=== PATIENT | male | born 1970 | race Caucasian/White ===

== ENCOUNTER → 2017-03-04 | Outpatient (CLI) | payer OTHER ==
[~2017-03-04] MED LIST: GADOBUTROL 7.5 MMOL/7.5 ML VIAL INT ART ONE; IOHEXOL 300 MG/ML 10ML VIAL. INT ART ONE; LIDOCAINE 1% Multi-Dose 20 ML VIAL. ID ONE
--- NOTE | 2017-03-04 15:02 | KCIC ---
EXAM: Fluoroscopic guided right shoulder injection for MR arthrography. HISTORY: Pain. TECHNIQUE: The risks of the procedure were discussed with the patient and written and verbal consent was obtained. A time out was performed. Fluoroscopic imaging of the right shoulder was performed and a site overlying the joint space was selected for needle entry. The skin overlying this region was sterilely prepped, draped and infiltrated with 1% lidocaine. A spinal needle was then advanced into the joint space with fluoroscopic guidance. A solution containing 1 cc gadavist intravenous contrast in 5 cc Omnipaque 300, 5 cc lidocaine and 10 cc saline was injected into the joint space. The needle was removed and a sterile bandage was placed at the needle entry site. The patient tolerated the procedure without difficulty and was transferred to the MR suite for the post injection MR portion of the exam. The total fluoroscopy time was 18 seconds and a single fluoroscopic image was obtained. IMPRESSION: Successful fluoroscopic guided right shoulder injection for MR arthrography. Please refer to the separate MR arthrogram report for further evaluation details. Electronically signed by: Nikia Sanchez MD (03/04/2017 2:58 PM)
--- NOTE | 2017-03-04 16:07 | KCIC ---
MRI right shoulder arthrogram Clinical indications: Right shoulder pain and burning. Limited range of motion. No new injury. TECHNIQUE: After intra-articular injection of gadolinium, post arthrogram MRI sequences of the right shoulder were performed in all 3 planes. Additional ABER sequence of the right shoulder was performed. The intra-articular injection of gadolinium was performed by another radiologist and is dictated under separate report. COMPARISON: No previous MRI available. FINDINGS: Mild tendinosis of the supraspinatus tendon is seen. No partial articular surface tear or complete tear of the rotator cuff is seen. The tendon of the long head of the biceps is intact. No muscle atrophy is seen. There is mild primary degenerative osteoarthritis and spurring of the AC joint. The inferior margin of the acromial process is convex downward. These findings may impinge the acromial humeral space. There is mild chronic cystic change within the posterior lateral aspect of the humeral head secondary to chronic impingement. No bone contusion or fracture or marrow infiltrative process is seen. The glenohumeral joint is unremarkable. There is a small tear of the posterior superior aspect of the glenoid labrum. This portion of the labrum is irregular and fibrillated. There is a tiny paralabral ganglion cyst seen just medial to the superior posterior aspect of the glenoid labrum seen best on image 11 and series 3 and image 12 and series 6 and 7. No spinoglenoid notch ganglion cyst is seen. No subdeltoid or subacromial bursitis is seen. IMPRESSION: Mild tendinosis of the supraspinatus tendon. No rotator cuff tear is evident. Impingement of the acromial humeral space as discussed above. No subdeltoid or subacromial bursitis is seen. Small tear of the posterior superior aspect of the glenoid labrum with a tiny paralabral ganglion cyst. The cyst itself measures only 4 mm in size. There is paramagnetic susceptibility artifact involving the lateral subcutaneous soft tissues and lateral deltoid muscle. This may be secondary to previous shoulder surgery or a foreign body. Electronically signed by: Elias Monroy MD (03/04/2017 4:04 PM)
== END | disposition home or self-care (01) ==
LOC: KCIC 13:41
PROVIDERS: ATTEND Family Medicine
DX: M67.411 Ganglion, right shoulder (principal); Z87.891 Personal history of nicotine dependence
CPT/HCPCS: 73040; 73222; Q9967; A9585

== ENCOUNTER → 2018-09-20 | Outpatient (CLI) | payer OTHER ==
--- NOTE | 2018-09-21 10:16 | KCIC ---
MRI Lumbar Spine without contrast History: Acute lumbar pain Technique: Multiplanar, multi sequential noncontrast MR imaging was performed of the lumbar spine. Comparison: None Findings: There is mild motion. Lumbar vertebral body stature is overall preserved other than small Schmorl's nodes. There is negligible anterior spondylolisthesis L2-3. Conus terminates at L1. There is appearance of subtle increased STIR signal of the distal cord at the T12 level. There is [id number] degenerative disc disease at L2-L3, to a lesser degree at L4-5. There is trace edema of the anterior superior corner of L1 likely reactive/degenerative in etiology. T12-L1: Spinal canal and neural foramina are adequate. L1-L2: Neural foramina and spinal canal are adequate. L2-L3: There is minimal disc osteophyte complex and bulge. Spinal canal and neural foramina are adequate. L3-L4: There is negligible disc osteophyte complex. Neural foramina and spinal canal are adequate. Disc osteophyte complex is near the extraforaminal left L3 nerve root without displacement. L4-L5: There is negligible disc osteophyte complex, superimposed negligible bulge more eccentric to the right lateral recess. There is no significant neural impingement. Spinal canal is overall adequate. There is minimal neural foramina compromise bilaterally primarily from disc osteophyte complex. L5-S1: Spinal canal is adequate. There is negligible disc osteophyte complex in the inferior neural foramina bilaterally, neural foramina overall adequate. Impression: 1. There is no lumbar spinal stenosis. There is minimal neural foramina compromise bilaterally at L4-5. Disc osteophyte complex is near the extraforaminal left L3 nerve root at L3-4 without displacement. There is multilevel minimal spondylosis. There is degenerative disc disease greatest at L2-3 and L4-5. Electronically signed by: Jaleel Hernandez MD (09/21/2018 10:12 AM) [email or web address]
== END | disposition home or self-care (01) ==
LOC: KCIC MRI 17:11
PROVIDERS: ATTEND Family Medicine Sports Medicine
DX: M51.36 Other intervertebral disc degeneration, lumbar region (principal); M47.896 Other spondylosis, lumbar region; M51.46 Schmorl's nodes, lumbar region; M25.78 Osteophyte, vertebrae
CPT/HCPCS: 72148

== ENCOUNTER → 2019-06-13 | Outpatient (CLI) | payer OTHER ==
[~2019-06-13] MED LIST changes: -GADOBUTROL 7.5 MMOL/7.5 ML VIAL INT ART ONE; +HYDR-2761 PO; -IOHEXOL 300 MG/ML 10ML VIAL. INT ART ONE; -LIDOCAINE 1% Multi-Dose 20 ML VIAL. ID ONE; +NAPR-514 PO
--- NOTE | 2019-06-14 00:03 | PAIN ---
DATE OF SERVICE: 06/13/2019 INITIAL CONSULTATION FOR PAIN CLINIC CHIEF COMPLAINT: Neck and bilateral upper extremity pain. HISTORY OF PRESENT ILLNESS: The patient is a 48-year-old male who presents with history of pain in the neck and base of the shoulders bilaterally for about the past 8 months or so, not a result of any specific injury or action he is aware of, it has been increasing with activity, rotational motion of cervical spine, difficulty sleeping at night, wakes him from sleep, many times during the night. It does not affect his bowel or bladder control or his ability to walk, significantly tender. He also has some low back pain. He has had some radiofrequency ablation done in the past with good results, but his main complaint is neck and upper extremity pain. The patient reports right essentially equal to left. He has had chiropractic treatment as well as doing exercises, both of which helped. He is still doing some stretching as well as takes hydrocodone as well as baclofen. Hydrocodone does help somewhat and naproxen, which helped some of the back pain ____. The patient rates his disability rating from 0-10, 10 being the worst, is a 5 with family, home responsibilities, recreation, social activity, and sexual behavior, 7 with occupation, 9 with self-care activities and 9 with life support activities. The patient reports pain is becoming more constant, sharp, tingling with numbness in the upper extremities, no specific weakness of the arms, but a burning, aching pain, has significant fatigability in the upper extremities bilaterally as well. The patient did have MRI scan; however, that was at outside facility and is still pending at time of this dictation. PAST MEDICAL HISTORY: Significant for diabetes type 2, history of cigarette smoking 3/4 pack for the past 20 years, low back pain, arthritis. PREVIOUS SURGERY: Include fractured index finger and right shoulder surgery in 2011. CURRENT MEDICATIONS: Include naproxen and hydrocodone. ALLERGIES: The patient has no known drug allergies. FAMILY HISTORY: Significant for diabetes. SOCIAL HISTORY: The patient drinks alcohol occasionally socially smoked about 3/4 of pack a day for 20 years. Does not use any illegal, illicit or recreational drugs. He is , lives with his spouse, lives locally in [place], [place] and is active family. REVIEW OF SYSTEMS: The patient's review of systems is positive for those items mentioned in history of present illness. All systems reviewed and otherwise negative. It is complete, full and well documented on the patient's chart. PHYSICAL EXAMINATION: VITAL SIGNS: The patient's blood pressure is 136/92, pulse 77, respirations 18, temperature 98.2 degrees Fahrenheit, height is 5 feet 9 inches, weight is 214 pounds. GENERAL: The patient is awake, alert, oriented, appropriate, very pleasant demeanor. HEENT: Shows normocephalic, atraumatic. Extraocular movements are intact and symmetrical. Oral cavity: Mucous membranes moist and pink. Dentition is intact. NECK: Shows anterior throat supple without palpable lymphadenopathy noted. Swallow reflex symmetrical. CHEST: Shows normal on inspection. Breath sounds clear to auscultation bilaterally. HEART: Shows S1, S2 clear. No murmurs auscultated. ABDOMEN: Soft, nontender, nondistended. No palpable organomegaly is noted. No rebound or guarding demonstrated. BACK: Shows spine grossly in the midline. Normal appearing thoracic kyphosis, cervical lordotic curvature and lumbar lordotic curvature. Cervical paraspinous muscle shows symmetrical on inspection, with palpation shows some moderate tenderness diffusely bilaterally in the middle and inferior aspect of the cervical paraspinous musculature. The patient's neck shows good rotational motion both laterally greater than 45 degrees closer to 90 degrees laterally as well as full forward flexion and extension without significant increase in pain. EXTREMITIES: The patient's upper extremities show deep tendon reflexes at 2+ in the biceps and triceps tendons. 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 Peripheral pulses are 2+ radial distribution. No peripheral edema is noted. Shoulder shrug is strong and intact without loss of strength on resistance as is abduction of shoulder at 90 degrees without loss of strength on resistance as well bilaterally. SKIN: Warm and dry, good turgor. No edema. No sores, rashes or bruising throughout. IMPRESSION: 1. This is a 48-year-old male with approximate 8-month history of increasing pain in base of the neck radiating to the bilateral upper extremity in a radicular fashion. 2. MRI scan, as noted, pending. 3. Type 2 diabetes. 4. Cigarette smoking. 5. Arthritis. PLAN: Options were discussed with the patient including conservative medical management, physical therapy, and interventional techniques and he would like to pursue interventional techniques as he is already doing some chiropractic treatment and exercises on his own. We discussed a cervical epidural steroid injection using description as well as anatomical models to describe the procedure. The patient will wait for preauthorization with insurance provider and would like to proceed. We will have him return in approximately 2 weeks. The patient was given Medrol Dosepak in the meantime with instructions, side effects to be aware of with the medication. We will follow up as scheduled plan on cervical epidural steroid injection on return. RAUL STONE MD DR: BLANQUITA/leeroy JOB#: [id number] / [id number]
== END | disposition home or self-care (01) ==
LOC: PNCL 09:42
PROVIDERS: ATTEND Anesthesiology
DX: M54.2 Cervicalgia (principal); M79.641 Pain in right hand; M79.642 Pain in left hand; R20.0 Anesthesia of skin; R20.2 Paresthesia of skin; E11.9 Type 2 diabetes mellitus without complications; M19.90 Unspecified osteoarthritis, unspecified site; F17.210 Nicotine dependence, cigarettes, uncomplicated
CPT/HCPCS: G0463

== ENCOUNTER → 2019-06-27 | Outpatient (CLI) | payer OTHER ==
[~2019-06-27] MED LIST changes: +IOHEXOL 180 MG/ML 10 ML VIAL. ONE; +methylPREDNISolone ACETATE 40 MG/ML VIAL. ONE; +methylPREDNISolone ACETATE 80 MG/ML VIAL. ONE
--- NOTE | 2019-06-27 11:48 | PAIN ---
DATE OF SERVICE: 06/27/2019 PROGRESS NOTE FOR PAIN CLINIC DIAGNOSIS: Cervical radiculopathy with cervical degenerative disk disease. HISTORY OF PRESENT ILLNESS: The patient is a 48-year-old male who returns for followup status post evaluation for cervical epidural steroid injection. He has obtained this now and would like to proceed. The patient still has some pain in the base of the neck and shoulders bilaterally, right essentially equal to the left at this time, worse with repetitive motions, reaching over his head with his arms, weightbearing, driving. The patient reports it awakens him from sleep occasionally once about every 6 hours or so. The patient reports his pain is a 7 on a scale of 10 at its worst over the past week, on average is 7, also 3 at its least and is a 7 today. The patient reports it is aching, dull, tight, tingling, burning, sometimes severe in the base of neck and shoulders as well as into the upper extremities. The patient reports no new motor or sensory deficits or other complaints. PHYSICAL EXAMINATION: VITAL SIGNS: The patient's blood pressure 125/97, pulse 79, respirations 18, temperature 98.5 degrees Fahrenheit, height is 5 feet 9 inches, weight is 213 pounds. GENERAL: The patient is awake, alert, oriented, appropriate, very pleasant demeanor. HEENT: Shows normocephalic, atraumatic. Extraocular movements are intact and symmetrical. Oral cavity: Mucous membranes moist and pink. Dentition is intact. NECK: Shows anterior throat supple without palpable lymphadenopathy noted. Swallow reflex symmetrical. CHEST: Shows normal on inspection. Breath sounds are clear to auscultation bilaterally. HEART: Shows S1, S2 clear. No murmurs auscultated. ABDOMEN: Soft, nontender, nondistended. No palpable organomegaly is noted. No rebound or guarding demonstrated. BACK: Shows spine grossly in the midline. Cervical lordotic curvature slightly flattened. Cervical paraspinous muscle shows symmetrical on inspection, on palpation shows some moderate tenderness diffusely bilaterally, but only diffusely without significant radiation. The patient has good rotational motion of cervical spine, both laterally greater than 45 degrees closer to 90 degrees as well as full extension, full forward flexion without significant increase in pain. EXTREMITIES: Upper extremities show deep tendon reflexes at 2+ in the biceps and triceps tendons. 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 Peripheral pulses are 2+ radial distribution. No peripheral edema is noted bilaterally. Options were discussed with the patient. The patient's old chart was reviewed as his current medication regimen updated. Current review of systems updated today as well. We will proceed with cervical epidural steroid injection today with fluoroscopic guidance. Risks were again discussed including, but not limited to bleeding, infection, possibility of epidural hematoma and subsequent neurological compromise, dural puncture, headaches, spinal cord and/or nerve damage, side effects of steroid medication and poor results regarding pain control. The patient understands and wished to proceed. The patient will return to clinic in approximately 2 weeks for followup. She was counseled on return appointment, activity level and side effects to be aware of. DIAGNOSES: Cervical radiculopathy with cervical degenerative disk disease. PROCEDURE: Cervical epidural steroid injection, translaminar approach, C6-C7 level, using C-arm fluoroscopic guidance under sterile prep and drape using local anesthetic. MEDICATION INJECTED: A total of 120 mg Depo-Medrol plus 5 mL of preservative-free normal saline and 2 mL of contrast. CONDITION AT DISCHARGE: Stable. The patient tolerated the procedure well, had no complications. RAUL STONE MD DR: BLANQUITA/leeroy JOB#: [id number] / [id number]
== END ==
LOC: PNCL 10:04
PROVIDERS: ATTEND Anesthesiology
DX: M50.123 Cervical disc disorder at C6-C7 level with radiculopathy (principal)
CPT/HCPCS: 62321; J1030; J1040; Q9965

== ENCOUNTER → 2019-11-18 | Outpatient (CLI) | payer OTHER ==
[~2019-11-18] MED LIST changes: -IOHEXOL 180 MG/ML 10 ML VIAL. ONE; -methylPREDNISolone ACETATE 40 MG/ML VIAL. ONE; -methylPREDNISolone ACETATE 80 MG/ML VIAL. ONE
--- NOTE | 2019-11-18 17:07 | KCIC ---
MRI Lumbar Spine without contrast History: Chronic lumbar pain, pain and numbness into the left flank Technique: Multiplanar, multi sequential noncontrast MR imaging was performed of the lumbar spine. Comparison: September 20, 2018 Findings: Other than small Schmorl's nodes, lumbar vertebral body stature is maintained. AP alignment is unchanged. There is again small focus of nonexpansile, increased T2 and STIR signal of the distal cord at T12. There is again [id number] degenerative disc disease at L2-3, to lesser degree at L4-5, mild disc desiccation L3-4 and L1-2. T11-12: Neural foramina and spinal canal are adequate. T12-L1: Neural foramina and spinal canal are adequate. L1-L2: Neural foramina and spinal canal are adequate. There is negligible disc osteophyte complex. L2-L3: There is a minimal disc osteophyte complex and bulge. Spinal canal and neural foramina are adequate. L3-L4: There is again negligible disc osteophyte complex. Spinal canal and neural foramina are overall adequate. There is minimal buckling of the ligamentum flavum and facet degenerative change. Disc osteophyte complex is again near the extraforaminal left L3 nerve root without significant displacement. L4-L5: There is again negligible disc osteophyte complex and bulge. Spinal canal is overall adequate. There is again mild inferior neural foramina compromise bilaterally greater on the right by disc osteophyte complex, near the undersurfaces of the exiting L4 nerve roots greater on the right without significant displacement. L5-S1: Spinal canal is adequate. There is again negligible disc osteophyte complex in the inferior neural foramina, very mild narrowing of the more distal right neural foramen, left neural foramen not significantly narrowed. Impression: 1. Findings are similar comparing with the September 2018 exam. There is again degenerative disc disease greatest at L2-3. There is multilevel mild spondylosis. There is no new significant lumbar spinal stenosis. There is mild neural foramina compromise as stated. There is again focus of nonexpansile, increased T2 signal of the distal thoracic cord with could be secondary to sequela of demyelination or myelomalacia. Electronically signed by: Jaleel Hernandez MD (11/18/2019 5:04 PM) [email or web address]
== END | disposition home or self-care (01) ==
LOC: KCIC MRI 15:53
PROVIDERS: ATTEND Nurse Practitioner Family
DX: M51.36 Other intervertebral disc degeneration, lumbar region (principal); M51.26 Other intervertebral disc displacement, lumbar region; M48.07 Spinal stenosis, lumbosacral region; M25.78 Osteophyte, vertebrae
CPT/HCPCS: 72148

== ENCOUNTER → 2020-05-21 | Outpatient (CLI) | payer OTHER ==
[~2020-05-21] MED LIST changes: +METF500T16 PO
--- NOTE | 2020-05-21 11:35 | PDOC ---
Progress Note - Pain Clinic Date of Service: DOS: DATE: 05/21/20 TIME: 11:28 Diagnosis: Dx: Cervical radiculopathy with cervical degenerative disc disease History or Present Illness: HPI: 49-year-old male returns follow-up status post cervical epidural steroid injection June 27, 2019. Patient ports about 75% improvement for about 4 months he was increasing activity greater ease and comfort feeling much better during work activities household activities greater ease and comfort and daily activities traveling greater ease and comfort as well. Patient reports since that time the pain level has decreased in intensity but the pain is increasing i n the base the neck and especially in the left greater than right upper extremity. Patient ports about the past 5 to 6 months pain is been more noticeable and now is getting much more noticeable raise beyond the emergency department to get a Toradol shot about once every week a week and a half. Patient reports pain is a 9 on a scale of 10 is worse over the past week 8 on average 5 this least is a 5 today. Patient describes pain as aching sharp shooting tight tingling radiating constant and severe at times as well mostly in the base the neck and left greater than right shoulder and left upper extremity was been dropping some items with some pain rating into the bicep as well as into the forearm and occasionally some tingling in the left hand. She has been chiropractic help which is been only minimally decreasing the pain. Patient reports no new motor or sensory deficits no new bowel or bladder incontinence complaints. Physical Exam: VS: Blood pressure is 134/104 pulse 81 respirations 18 temperature 98.3 F height 5 feet 9 inches weight is 224 pounds PE: PHYSICAL EXAMINATION: GENERAL: The patient is awake, alert, oriented, appropriate, very pleasant demeanor HEENT: Shows normocephalic, atraumatic. Extraocular movements are intact and symmetrical. Oral cavity: Mucous membranes moist and pink. Dentition is intact. NECK: Shows anterior throat supple without palpable lymphadenopathy noted. Swallow reflex symmetrical. CHEST: Shows normal on inspection. Breath sounds are clear bilaterally, no rales rhonchi or wheezes. HEART: Shows S1, S2 clear. No murmurs auscultated. ABDOMEN: Soft, nontender, nondistended. No palpable organomegaly is noted. No rebound or guarding demonstrated. BACK: Shows spine grossly in the midline. Normal-appearing cervical lordotic curvature, cervical range of motion is intact with good right and left lateral rotation with some moderate tenderness with far left lateral Tatian past 45 degrees before rotation right past 45 closer to 90 degrees. Full extension full for flexion deformity mild tenderness with extension only. Paraspinous muscle shows moderately tender more on the left than the right with inferior aspect of the cervical paraspinous muscles into the superior medial trapezius on the left again without specific trigger points. There is slightly increased thoracic kyphosis, some minor flattening of the lumbar lordotic curvature. Lumbar paraspinous muscles show symmetrical on inspection, on palpation shows some moderate tenderness diffusely throughout the upper, middle and lower distribution of the paraspinous muscles without specific trigger points, without radiation of pain. The patient has good rotational motion of the lumbar spine, both laterally as well as extension and flexion without significant difficulty. No tenderness over the spinous processes, sacrum or sacroiliac regions. EXTREMITIES: upper extremities show deep tendon reflexes 2+ in the biceps and tricep tendons. Motor exam is 5 on a scale of 5 with right biceps and tricep flexion and 5/5 on the left. Peripheral pulses are 2+ radial. No peripheral edema is noted bilaterally. upper extremities are warm and dry to touch, equal in color and appearance. SKIN: Shows warm and dry, good turgor. No edema. No sores, rashes or bruising throughout. Procedure: Procedure: None Medication Injected: Med Injected: None Condition at Discharge: Condition at Discharge: Options discussed with the patient. Patient will chart was reviewed his current medication regimen updated current review of systems updated today as well. We will preauthorize patient for a cervical epidural steroid injection is done very well with these in the past and has been almost 1 year since he had an injection. Patient continues to have significant clinical radiculopathy on the left at the C6-7 level and dermatome. Patient will continue with stretching and strengthening exercises as he is currently doing. Patient also given a prescription for Medrol Dosepak with instructions and side effects to be aware of. Patient will return to clinic in approximately 1 week after preauthorization with his insurance provider will plan on cervical epidural steroid injection translaminar approach at that time. RAUL STONE MD May 21, 2020 11:35
== END | disposition home or self-care (01) ==
LOC: PNCL 10:38
PROVIDERS: ATTEND Anesthesiology
DX: M50.123 Cervical disc disorder at C6-C7 level with radiculopathy (principal); Z79.899 Other long term (current) drug therapy
CPT/HCPCS: G0463

== ENCOUNTER → 2020-06-18 | Outpatient (CLI) | payer OTHER ==
[~2020-06-18] MED LIST changes: +IOHEXOL 180 MG/ML 10 ML VIAL. ONE; +methylPREDNISolone ACETATE 40 MG/ML VIAL. ONE; +methylPREDNISolone ACETATE 80 MG/ML VIAL. ONE
--- NOTE | 2020-06-18 11:35 | PDOC ---
Progress Note - Pain Clinic Date of Service: DOS: DATE: 06/18/20 TIME: 11:30 Diagnosis: Dx: Cervical radiculopathy with cervical degenerative disc disease History or Present Illness: HPI: 49-year-old male returns follow-up status post cervical epidural straight injection x1 most recently with office visit May 21, 2020 and preauthorization for cervical epidural steroid injection. Patient reports still significant pain base the neck and left shoulder left upper extremity as it was previously without significant change patient reports is an 8 on a scale of 10 is worse over the past week 5 on average for this least is a 5 today patient was aching and tight tingling burning stabbing in the base the neck and shoulder on the left side primarily into the anterior deltoid bicep and into the forearm with repetitive motions and reaching above his head with his left hand. Patient reports no new motor or sensory deficits no loss of strength but significant fatigability of the left upper extremity. Physical Exam: VS: Blood pressure is 145/107 pulse 81 respirations 20 temperature 98.1 F weight is 223 pounds PE: PHYSICAL EXAMINATION: GENERAL: The patient is awake, alert, oriented, appropriate, very pleasant demeanor HEENT: Shows normocephalic, atraumatic. Extraocular movements are intact and symmetrical. Oral cavity: Mucous membranes moist and pink. NECK: Shows anterior throat supple without palpable lymphadenopathy noted. Swallow reflex symmetrical. CHEST: Shows normal on inspection. Breath sounds are clear bilaterally. HEART: Shows S1, S2 clear. No murmurs auscultated. ABDOMEN: Soft, nontender, nondistended. No palpable organomegaly is noted. No rebound or guarding demonstrated. BACK: Shows spine grossly in the midline. Normal-appearing cervical lordotic curvature, neck shows full rotation motion cervical spine both laterally greater than 45 degrees closer to 90 degrees as well as full extension full forward flexion without significant difficulty. There is slightly increased thoracic kyphosis, some minor flattening of the lumbar lordotic curvature. Lumbar paraspinous muscles show symmetrical on inspection, on palpation shows some moderate tenderness diffusely throughout the upper, middle and lower distribution of the paraspinous muscles bilaterally and also into the lower thoracic paraspinous musculature, firm and tender, but without specific trigger points, without radiation of pain. The patient has good rotational motion of the lumbar spine, both laterally as well as extension and flexion without significant difficulty. No tenderness over the spinous processes, sacrum or sacroiliac regions. EXTREMITIES: upper extremities show deep tendon reflexes 2+ in the biceps and triceps tendons. Motor exam is 5 on a scale of 5 with right almond paste mixer, biceps and triceps flexion and 5/5 on the left. Peripheral pulses are 2+ radial. No peripheral edema is noted bilaterally. upper extremities are warm and dry to touch, equal in color and appearance. SKIN: Shows warm and dry, good turgor. No edema. No sores, rashes or bruising throughout. Procedure: Procedure: Options were discussed with the patient. Patient old chart was reviewed, his current medication regimen updated, and current review of systems updated today as well. We will proceed with a cervical epidural steroid injection with fluoroscopic guidance. Risks were discussed including but not limited to: Bleeding, infection, possibility of epidural hematoma and subsequent neurological compromise, dural puncture, headaches, spinal cord and/or nerve damage, side effects of steroid medication, and poor results regarding pain con trol. Patient understands wished to proceed. Patient will return to the clinic in approximate 2 weeks for follow-up. Patient was counseled as return appointment activity level and side effects to be aware of. Medication Injected: Med Injected: Procedure cervical epidural steroid injection at the C6-7 level, using local anesthetic under sterile prep and drape using C-arm fluoroscopic guidance under local anesthesia medications injected ; 120 mg Depo-Medrol + 5 mL normal saline and 2 mL contrast; condition at discharge is stable patient tolerated procedure well. and had no complications Condition at Discharge: Condition at Discharge: Condition at discharge is stable, patient tolerated procedure well had no complications. RAUL STONE MD Jun 18, 2020 11:35
== END | disposition home or self-care (01) ==
LOC: PNCL 10:51
PROVIDERS: ATTEND Anesthesiology
DX: M50.123 Cervical disc disorder at C6-C7 level with radiculopathy (principal); E11.9 Type 2 diabetes mellitus without complications; Z87.891 Personal history of nicotine dependence; Z79.899 Other long term (current) drug therapy; Z79.84 Long term (current) use of oral hypoglycemic drugs
CPT/HCPCS: 62321; J1030; J1040; Q9965

== ENCOUNTER → 2020-07-13 | Outpatient (CLI) | payer OTHER ==
--- NOTE | 2020-07-13 10:52 | PDOC ---
Progress Note - Pain Clinic Date of Service: DOS: DATE: 07/13/20 TIME: 10:49 Diagnosis: Dx: Cervical radiculopathy with cervical degenerative disc disease History or Present Illness: HPI: 49-year-old male returns follow-up status post cervical epidural steroid injection x1. Patient reports about 50% improvement after first injection still some pain in the left upper extremity as well as the mid upper back patient reports is a 7 on scale 10 is worst over the past week 3 on average 3 its least is a 3 today. Patient which is aching and sharp can be shooting and tight at times in the shoulder and radiating to the left upper extremity no loss of motor function better ability to use his arm repetitively with motor function after his last injection and is still helping the pain by about 50%. Patient ports he still does not sleep well at night but not because of his left arm. Patient reports no new changes no new deficits. Physical Exam: VS: Blood pressure is 140/98 pulse 93 respirations 18 temperature 98.6 F height is 5 foot 9 inches weight is 221 pounds PE: PHYSICAL EXAMINATION: GENERAL: The patient is awake, alert, oriented, appropriate, very pleasant demeanor HEENT: Shows normocephalic, atraumatic. Extraocular movements are intact and symmetrical. NECK: Shows anterior throat supple without palpable lymphadenopathy noted. Swallow reflex symmetrical. CHEST: Shows normal on inspection. Breath sounds are clear bilaterally no rales rhonchi or wheezes. HEART: Shows S1, S2 clear. No murmurs auscultated. ABDOMEN: Soft, nontender, nondistended, obese. No palpable organomegaly is noted. No rebound or guarding demonstrated. BACK: Shows spine grossly in the midline. Normal-appearing cervical lordotic curvature. There is slightly increased thoracic kyphosis, some minor flattening of the lumbar lordotic curvature. Lumbar paraspinous muscles show symmetrical on inspection, on palpation shows some moderate tenderness diffusely throughout the upper, middle and lower distribution of the paraspinous muscles bilaterally, without specific trigger points, without radiation of pain. The patient has good rotational motion of the lumbar spine, both laterally as well as extension and flexion without significant difficulty. No tenderness over the spinous processes, sacrum or sacroiliac regions. EXTREMITIES: Upper extremities show deep tendon reflexes 2+ in the biceps and triceps tendons. Motor exam is 5 on a scale of 5 with right planning intern strength, biceps and triceps flexion and 5/5 on the left. Peripheral pulses are 2+ posterior radial. No peripheral edema is noted bilaterally. Upper extremities are warm and dry to touch, equal in color and appearance. SKIN: Shows warm and dry, good turgor. No edema. No sores, rashes or bruising throughout. Procedure: Procedure: Options were discussed with the patient. Patient's old chart was reviewed his his current medication regimen updated current review of systems updated today as well. We will proceed with a second in a series cervical epidural steroid injection today with fluoroscopic guidance. Risks were discussed including but not limited to: Bleeding, infection, possibility of epidural hematoma and subsequent neurological compromise, dural puncture, headaches, spinal cord and/or nerve damage, side effects of steroid medication, and poor results regarding pain control. Patient understands wished to proceed. Patient will return to the clinic in possibly 2 weeks for follow-up was counseled as to return appointment activity level and side effects to be aware of. Medication Injected: Med Injected: Procedure cervical epidural steroid injection at the C6-7 level, using local anesthetic under sterile prep and drape using C-arm fluoroscopic guidance under local anesthesia medications injected ; 120 mg Depo-Medrol + 5 mL normal saline and 2 mL contrast; condition at discharge is stable patient tolerated procedure well. and had no complications Condition at Discharge: Condition at Discharge: Condition at discharge is stable patient tolerated the procedure well had no complications. RAUL STONE MD Jul 13, 2020 10:52
== END ==
LOC: PNCL 10:04
PROVIDERS: ATTEND Anesthesiology
DX: M50.123 Cervical disc disorder at C6-C7 level with radiculopathy (principal); E11.9 Type 2 diabetes mellitus without complications; Z79.899 Other long term (current) drug therapy; Z79.84 Long term (current) use of oral hypoglycemic drugs
CPT/HCPCS: 62321; J1030; J1040; Q9965

== ENCOUNTER → 2020-09-17 | Outpatient (CLI) | payer OTHER ==
--- NOTE | 2020-09-17 08:45 | PDOC ---
Progress Note - Pain Clinic Date of Service: DOS: DATE: 09/17/20 TIME: 08:41 Diagnosis: Dx: Cervical radiculopathy with cervical degenerative disc disease Lumbar radiculopathy with lumbar degenerative disc disease History or Present Illness: HPI: 49-year-old male returns follow-up status post cervical epidural steroid injection x2. Patient reports 50% improvement initially in the base the neck a nd left greater than right upper extremities still pain the base the neck causing headaches also pain in the shoulders bilaterally radiating to the left side greater than right patient reports is a 10 on scale 10 is worse over the past week 10 on average 7 its least is a 10 today. Patient was aching and tight tingling severe the base the neck and shoulders again with headaches pos teriorly. Patient reports initially did much better with increasing his activity to greater distance walking doing more work activities household activities and traveling with greater ease and comfort but pain is returning now to fairly significant extent. Patient scribes as tingling aching tight severe in the shoulders itself as well as the neck awakens her from sleep about once every 6 hours. Patient ports no new motor or sensory deficits. Physical Exam: VS: Blood pressure is 130 over pulse 81 respirations 18 temperature is 98.4 F height is 5 feet 9 inches weight is 227 pounds PE: PHYSICAL EXAMINATION: GENERAL: The patient is awake, alert, oriented, appropriate, very pleasant demeanor HEENT: Shows normocephalic, atraumatic. Extraocular movements are intact and symmetrical. Oral cavity: Mucous membranes moist and pink. NECK: Shows anterior throat supple without palpable lymphadenopathy noted. Swallow reflex symmetrical. CHEST: Shows normal on inspection. Breath sounds are clear bilaterally. HEART: Shows S1, S2 clear. No murmurs auscultated. ABDOMEN: Soft, nontender, nondistended, obese. No palpable organomegaly is noted. No rebound or guarding demonstrated. BACK: Shows spine grossly in the midline. Normal-appearing cervical lordotic curvature. Cervical paraspinous muscles show symmetrical with inspection on palpation some moderate tenderness diffusely bilaterally diffusely without significant radiation. Asymmetry no atrophy hypertrophy no specific trigger points. There is slightly increased thoracic kyphosis, some minor flattening of the lumbar lordotic curvature. Lumbar paraspinous muscles show symmetrical with inspection on palpation some mild tenderness to moderate tenderness in the in ferior aspect of the lumbar paraspinous muscles bilaterally but without radiation. EXTREMITIES: Upper extremities show deep tendon reflexes 2+ in the biceps and triceps tendons. Motor exam is 5 on a scale of 5 with right strength, biceps and triceps flexion and 5/5 on the left. Peripheral pulses are 2+ radial. No peripheral edema is noted bilaterally. Upper extremities are warm and dry to touch, equal in color and appearance. SKIN: Shows warm and dry, good turgor. No edema. No sores, rashes or bruising throughout. Procedure: Procedure: Options were discussed with the patient. Patient will chart reviewed his current medication regimen updated current review of systems updated today as well. We will proceed with a third in the series cervical epidural steroid injection today with fluoroscopic guidance. Risks were discussed including but not limited to: Bleeding, infection, possibility of epidural hematoma and subsequent neurological compromise, dural puncture, headaches, spinal cord and/or nerve damage, side effects of steroid medication, and poor results regarding pain control. Patient understands wished to proceed. Patient will return to clinic in approximate 2 weeks for follow-up was counseled as to return appointment activity level and side effects to be aware of. Medication Injected: Med Injected: Procedure cervical epidural steroid injection at the C6-7 level, using local anesthetic under sterile prep and drape using C-arm fluoroscopic guidance under local anesthesia medications injected ; 120 mg Depo-Medrol + 5 mL normal saline and 2 mL contrast; condition at discharge is stable patient tolerated procedure well. and had no complications Condition at Discharge: Condition at Discharge: Condition at discharge stable, patient tolerated procedure well and had no complications. RAUL STONE MD Sep 17, 2020 08:45
== END | disposition home or self-care (01) ==
LOC: PNCL 07:56
PROVIDERS: ATTEND Anesthesiology
DX: M50.10 Cervical disc disorder with radiculopathy, unspecified cervical region (principal); M51.16 Intervertebral disc disorders with radiculopathy, lumbar region; Z79.899 Other long term (current) drug therapy
CPT/HCPCS: 62321; J1030; J1040; Q9965

== ENCOUNTER → 2021-08-19 | Outpatient (CLI) | payer OTHER ==
[~2021-08-19] MED LIST changes: -IOHEXOL 180 MG/ML 10 ML VIAL. ONE; +OXYC5CAP PO; -methylPREDNISolone ACETATE 40 MG/ML VIAL. ONE; -methylPREDNISolone ACETATE 80 MG/ML VIAL. ONE
--- NOTE | 2021-08-19 11:25 | PDOC ---
Progress Note - Pain Clinic Date of Service: DOS: DATE: 08/19/21 TIME: 11:20 Diagnosis: Dx: Cervical radiculopathy with cervical degenerative disc disease Lumbar radiculopathy with lumbar degenerative disease Left knee joint pain with osteoarthritis History or Present Illness: HPI: 50-year-old male returns for follow-up status post cervical epidural steroid injection last seen September 17, 2020. Patient did very well with about 75% improvement in the neck and left upper extremity pain patient reports the pain is been returning now over the past 2 to 3months patient reports the pain is increasing in the base the neck and left shoulder rating the left arm as well as bilateral upper shoulders patient rates as a 9 on scale 10 is worse over the past week 7 on average 5 its least is a 7 today. Patient reports also pain in the low back and bilateral lower extremities the posterior gluteus posterior thighs posterior calves and lateral thighs as well patient reports this has been going on for at least 2 years as well is becoming more noticeable but still has neck and shoulder and left arm pain are the chief complaint. Patient also has osteoarthritis of the left knee with significant knee pain which has been treated at an outside orthopedist as well with good results. Patient reports the pain in the neck and shoulders and left upper extremities also low back and knees sharp and aching tight in the neck and back burning in the arm and legs stabbing in the back and the neck radiating constant again the left arm greater than the right and into the lower extremities bilaterally. Patient reports worse with walking standing changing positions sleep is becoming more difficult initially was doing much better after the cervical epidural steroid injection with doing household activities work activities travel with greater ease and comfort as well sleeping better. Patient reports no bowel or bladder incontinence no motor loss significant fatigability of both the leg specially the left knee and the left upper extremity with reaching and weightbearing repetitive motions. Physical Exam: VS: Blood pressure is 147/102 pulse 65 respirations 18 temperature 90.2 F height is 5 feet 9 inches weight is 203 pounds PE: PHYSICAL EXAMINATION: GENERAL: The patient is awake, alert, oriented, appropriate, very pleasant in demeanor HEENT: Shows normocephalic, atraumatic. Extraocular movements are intact and symmetrical. Oral cavity: Mucous membranes moist and pink. Dentition is intact. NECK: Shows anterior throat supple without palpable lymphadenopathy noted. Swallow reflex symmetrical. CHEST: Shows normal on inspection. Breath sounds are clear bilaterally, distant no rales rhonchi or wheezes auscultated. HEART: Shows S1, S2 clear. No murmurs auscultated. ABDOMEN: Soft, nontender, nondistended, obese. No palpable organomegaly is noted. BACK: Shows spine grossly in the midline. Normal-appearing cervical lordotic curvature. Cervical paraspinous muscles show symmetrical inspection, palpation some moderate tenderness diffusely bilaterally only diffusely without significant radiation. Patient shows good rotation motion cervical spine both laterally as well as extension flexion without significant limitation. There is slightly increased thoracic kyphosis, some flattening of the lumbar lordotic curvature. Lumbar paraspinous muscles show symmetrical on inspection, on palpation shows some moderate tenderness diffusely throughout the upper, middle and lower distribution of the paraspinous muscles without specific trigger points, without radiation of pain. The patient has good rotational motion of the lumbar spine, both laterally as well as extension and flexion without significant difficulty. No tenderness over the spinous processes, sacrum or sacroiliac regions. EXTREMITIES: Lower extremities show deep tendon reflexes 1 in the patellar and tendo calcaneus tendons. Motor exam is 5 on a scale of 5 with right dorsiflexion, extension, quadriceps and hamstring flexion and 5/5 on the left. Peripheral pulses are 1+ posterior tibial. No peripheral edema is noted bilaterally. Patient's left knee shows significant tenderness with palpation over the medial collateral ligament but not the lateral good range of motion however without crepitus and without ratcheting. Lower extremities are warm and dry to touch, equal in color and appearance. Upper extremity show deep tendon reflexes 2+ in the bicep tricep tendons, motor exam strong with drug abuse treatment specialist strength rated 5 out of 5 as is bicep and tricep flexion. SKIN: Shows warm and dry, good turgor. No edema. No sores, rashes or bruising throughout. Procedure: Procedure: Options were discussed with the patient. Patient's old chart was reviewed his current medication regimen updated current review of systems updated today as well. We will preauthorize patient for cervical epidural steroid injection as he done very well with these in the past and has a clinical radiculopathy in the C6-7 dermatomal distribution on the left. Patient also with radicular pain in the low back at L4-5 dermatomal distribution as well as osteoarthritis and significant knee pain on the left. Once approved, patient will return to clinic for plan on cervical epidural steroid injection with fluoroscopic guidance at that time. Medication Injected: Med Injected: None Condition at Discharge: Condition at Discharge: Condition at discharge is stable. RAUL STONE MD Aug 19, 2021 11:25
== END | disposition home or self-care (01) ==
LOC: PNCL 10:48
PROVIDERS: ATTEND Anesthesiology
DX: M50.10 Cervical disc disorder with radiculopathy, unspecified cervical region (principal); M51.16 Intervertebral disc disorders with radiculopathy, lumbar region; M17.12 Unilateral primary osteoarthritis, left knee; Z79.84 Long term (current) use of oral hypoglycemic drugs; Z79.899 Other long term (current) drug therapy
CPT/HCPCS: 99212; G0463

== ENCOUNTER → 2021-08-28 | Outpatient (CLI) | payer OTHER ==
[~2021-08-28] MED LIST changes: +IOHEXOL 180 MG/ML 10 ML VIAL. ONE; +methylPREDNISolone ACETATE 40 MG/ML VIAL. ONE; +methylPREDNISolone ACETATE 80 MG/ML VIAL. ONE
--- NOTE | 2021-08-28 10:39 | PDOC ---
Progress Note - Pain Clinic Date of Service: DOS: DATE: 08/28/21 TIME: 10:36 Diagnosis: Dx: Cervical radiculopathy with cervical degenerative disc disease Lumbar radiculopathy with lumbar degenerative disc disease Left knee joint pain with osteoarthritis History or Present Illness: HPI: 50-year-old male returns for follow-up status post evaluation and returns reporting pain base the neck and bilateral upper extremities becoming more severe with daily activities reaching repetitive activities with the upper extremities weight lifting reaching forward with weightbearing reaching over his head with both hands patient reports pain is a 9 on scale 10 is worse over the past week 7 on average 5 its least described as aching and tight in the neck shooting tingling radiating the upper extremities bilaterally essentially right equal to left. Patient reports no loss of motor function but significant fatigability the right upper extremities with activity. Patient reports that wakes from sleep frequently as well. Patient reports no deficits no bowel or bladder incontinence. Physical Exam: VS: Blood pressure is 123/93 pulse 70 respirations are 18 temperature 98.1 F weight is 204 pounds PE: PHYSICAL EXAMINATION: GENERAL: The patient is awake, alert, oriented, appropriate, very pleasant in demeanor HEENT: Shows normocephalic, atraumatic. Extraocular movements are intact and symmetrical. Oral cavity: Mucous membranes moist and pink. Dentition is intact. NECK: Shows anterior throat supple without palpable lymphadenopathy noted. Swallow reflex symmetrical. CHEST: Shows normal on inspection. Breath sounds are clear bilaterally. HEART: Shows S1, S2 clear. No murmurs auscultated. ABDOMEN: Soft, nontender, nondistended. No palpable organomegaly is noted. BACK: Shows spine grossly in the midline. Normal-appearing cervical lordotic curvature. Cervical paraspinous muscles show symmetrical inspection, palpation to moderate tenderness diffusely bilaterally diffusely without significant radiation. Patient is shows full extension full flexion as well as right and left lateral rotation cervical spine without significant increase in pain. There is slightly increased thoracic kyphosis, some minor flattening of the lumbar lordotic curvature. Lumbar paraspinous muscles show symmetrical on inspection, on palpation shows some moderate tenderness diffusely throughout the upper, middle and lower distribution of the paraspinous muscles, but without specific trigger points, without radiation of pain. The patient has good rotational motion of the lumbar spine, both laterally as well as extension and flexion without significant difficulty. EXTREMITIES: Lower extremities show deep tendon reflexes 1 in the patellar and tendo calcaneus tendons. Motor exam is 5 on a scale of 5 with right dorsiflexion, extension, quadriceps and hamstring flexion and 5/5 on the left. Peripheral pulses are 1+ posterior tibial. No peripheral edema is noted bilaterally. Lower extremities are warm and dry to touch, equal in color and appearance. Upper extremity show deep tendon reflexes 2+ in the bicep triceps tendons, motor exam is strong with 5 out of 5 defect repairer glassware strength bicep and tricep flexion equal bilaterally. SKIN: Shows warm and dry, good turgor. No edema. No sores, rashes or bruising throughout. Procedure: Procedure: Options discussed with patient. Patient chart was reviewed his current medication regimen updated current review of systems updated today as well. We will proceed with a cervical epidural steroid injection today with fluoroscopic guidance. Risks were discussed including but not limited to: Bleeding, infection, possibility of epidural hematoma and subsequent neurological compromise, dural puncture, headaches, spinal cord and/or nerve damage, side effects of steroid medication, and poor results regarding pain control. Patient understands and wished to proceed. Patient will return to clinic in approximate 2 weeks for follow-up, was counseled return appointment, activity level, and side effects be aware of. Medication Injected: Med Injected: Procedure cervical epidural steroid injection at the C6-7 level, using local anesthetic under sterile prep and drape using C-arm fluoroscopic guidance under local anesthesia medications injected ;120 mg Depo-Medrol +5 mL normal saline and 2 mL contrast; condition at discharge is stable patient tolerated procedure well. and had no complications Condition at Discharge: Condition at Discharge: Condition at discharge stable, paced tolerated procedure well and had no complications. RAUL STONE MD Aug 28, 2021 10:39
--- NOTE | 2021-08-28 10:40 | PDOC4 ---
Procedure Note: ICD 10 Code: ICD 10 Code: M54.12 M50.30 Procedure Note: Patient was consented for cervical epidural steroid injection with fluoroscopic guidance. Risks were discussed including but not limited to: Bleeding, infection, possibility of epidural hematoma and subsequent neurological compromise, dural puncture, headaches, spinal cord and/or nerve damage, side effects of steroid medication, and poor results regarding pain control. Patient understands and wished to proceed. Procedure cervical epidural steroid injection at the C6-7 level, using local anesthetic under sterile prep and drape using C-arm fluoroscopic guidance under local anesthesia medications injected ;120 mg Depo-Medrol +5 mL normal saline and 2 mL contrast; condition at discharge is stable patient tolerated procedure well. and had no complications RAUL STONE MD Aug 28, 2021 10:40
== END | disposition home or self-care (01) ==
LOC: PNCL 09:32
PROVIDERS: ATTEND Anesthesiology
DX: M50.10 Cervical disc disorder with radiculopathy, unspecified cervical region (principal); M51.16 Intervertebral disc disorders with radiculopathy, lumbar region; M17.12 Unilateral primary osteoarthritis, left knee; Z79.84 Long term (current) use of oral hypoglycemic drugs; Z79.899 Other long term (current) drug therapy
CPT/HCPCS: 62321; J1030; J1040; Q9965

== ENCOUNTER → 2021-09-11 | Outpatient (CLI) | payer OTHER ==
--- NOTE | 2021-09-11 10:55 | PDOC4 ---
Procedure Note: ICD 10 Code: ICD 10 Code: M54.16 M51.36 Procedure Note: Patient was consented for lumbar epidural steroid injection with fluoroscopic guidance risks were discussed including but not limited to: Bleeding, infection, possibility of epidural hematoma and subsequent neurological compromise, dural puncture, headaches, spinal cord and/or nerve damage, side effects of steroid medication, and poor results regarding pain control. Patient understands and wished to proceed. Procedure is lumbar epidural steroid injection under local anesthetic using sterile prep and drape at the L4-5 level using C-arm fluoroscopic guidance in both AP and lateral views medications injected is 120 mg Depo-Medrol +10mL preservative-free normal saline and 2 mL contrast- condition at discharge is stable patient tolerated procedure well had no complications. RAUL STONE MD Sep 11, 2021 10:55
--- NOTE | 2021-09-11 10:55 | PDOC ---
Progress Note - Pain Clinic Date of Service: DOS: DATE: 09/11/21 TIME: 10:52 Diagnosis: Dx: Cervical radiculopathy degenerative disease Lumbar radiculopathy lumbar degenerative disease Left knee joint pain with osteoarthritis History or Present Illness: HPI: 50-year-old male returns for follow-up status post cervical epidural steroid injection with very good results about 70% improvement after the first injection the pain in the neck and the upper extremities patient's chief complaint today however is low back pain radiating into the left lower extremity posterior gluteus posterior lateral thigh lateral anterior thigh anteromedial thigh medial lower leg as well as the left knee patient reports is worse with walking standing change positions better with sitting or laying down has been waking from sleep about every 5 hours or so patient reports pain is aching and tight in the back radiating the left lower extremity tingling and burning and shooting patient reports is an 8 on scale 10 is worse over the past week 5 on average/and is a 5 today. Patient reports no loss of motor function but significant fatigability left lower extremity standing walking more than about 10 to 15 minutes. Patient reports no bowel or bladder incontinence. Physical Exam: VS: Blood pressure is 137/80 pulse 90 respirations 18 temperature is 90.5 F weight is 203 pounds PE: PHYSICAL EXAMINATION: GENERAL: The patient is awake, alert, oriented, appropriate, very pleasant in demeanor HEENT: Shows normocephalic, atraumatic. Extraocular movements are intact and symmetrical. Oral cavity: Mucous membranes moist and pink. Dentition is intact. NECK: Shows anterior throat supple without palpable lymphadenopathy noted. Swallow reflex symmetrical. CHEST: Shows normal on inspection. Breath sounds are clear bilaterally, distant no rales or rhonchi. HEART: Shows S1, S2 clear. No murmurs auscultated. ABDOMEN: Soft, nontender, nondistended. No palpable organomegaly is noted. BACK: Shows spine grossly in the midline. Normal-appearing cervical lordotic curvature. There is slightly increased thoracic kyphosis, some flattening of the lumbar lordotic curvature. Lumbar paraspinous muscles show symmetrical on inspection, on palpation shows some moderate tenderness diffusely throughout the upper, middle and lower distribution of the paraspinous muscles, but without specific trigger points, without radiation of pain. The patient has good rotational motion of the lumbar spine, both laterally as well as extension and flexion without significant difficulty. EXTREMITIES: Lower extremities show deep tendon reflexes 1 in the patellar and tendo calcaneus tendons. Motor exam is 5 on a scale of 5 with right dorsiflexion, extension, quadriceps and hamstring flexion and 5/5 on the left. Peripheral pulses are 1+ posterior tibial. No peripheral edema is noted bilaterally. Lower extremities are warm and dry to touch, equal in color and appearance. 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 Peripheral pulses are 2+ radial. SKIN: Shows warm and dry, good turgor. No edema. No sores, rashes or bruising throughout. Procedure: Procedure: Options were discussed with the patient. Patient chart reviews his current medication regimen updated current review of systems updated today as well. We will proceed with a lumbar epidural steroid injection today with fluoroscopic guidance risks were discussed including but not limited to: Bleeding, infection, possibility of epidural hematoma and subsequent neurological compromise, dural puncture, headaches, spinal cord and/or nerve damage, side effects of steroid medication, and poor results regarding pain control. Patient understands and wished to proceed. She will return to clinic in approximate 2 weeks for follow- up, was counseled as return appointment, activity level, and side effect to be aware of. Medication Injected: Med Injected: Procedure is lumbar epidural steroid injection under local anesthetic using sterile prep and drape at the L4-5 level using C-arm fluoroscopic guidance in both AP and lateral views medications injected is 120 mg Depo-Medrol +10mL pr eservative-free normal saline and 2 mL contrast- condition at discharge is stable patient tolerated procedure well had no complications. Condition at Discharge: Condition at Discharge: Condition at discharge stable, patient tolerated procedure well and had no complications. RAUL STONE MD Sep 11, 2021 10:55
== END | disposition home or self-care (01) ==
LOC: PNCL 09:46
PROVIDERS: ATTEND Anesthesiology
DX: M51.16 Intervertebral disc disorders with radiculopathy, lumbar region (principal); M50.10 Cervical disc disorder with radiculopathy, unspecified cervical region; M19.012 Primary osteoarthritis, left shoulder; Z79.84 Long term (current) use of oral hypoglycemic drugs
CPT/HCPCS: 62323; J1030; J1040; Q9965